=== PATIENT | female | born 1945 | race Caucasian/White ===

== ENCOUNTER 2019-04-30 15:02 | Emergency (ER) | payer MEDICARE, OTHER ==
[~2019-04-30] VITALS: Ht 170.2 cm; Wt 79.4 kg
[2019-04-30] MEDS ORDERED: LIPITOR (15:08)
[2019-04-30] MEDS ORDERED: LOSARTAN (15:08)
[2019-04-30] MEDS ORDERED: ASPI81TA31 PO (15:08)
--- NOTE | 2019-04-30 15:11 | NUR ---
Patient ambulated with stable gait. A/Ox4. Speech is clear, speaks in complete sentences. Patient came for right index finger avulsion that happened @ 1030 this AM while she was cutting onions. Patient stated she went out and ran errands and when she came home she removed the dressing she applied and it would not stop bleeding. Addendum: 04/30/19 at 1539 by MIN Patient ambulated with stable gait. A/Ox4. Speech is clear, speaks in complete sentences. Patient came for right pinky finger avulsion that happened @ 1030 this AM while she was cutting onions with a mandolin. Patient stated she went out and ran errands and when she came home she removed the dressing she applied and it would not stop bleeding.
--- NOTE | 2019-04-30 15:52 | NUR ---
Patient discharged to home in stable conditon. Written and verbal after care instructions given. Patient verbalizes understanding of instructions. Patient ambulated with stable gait.
--- NOTE | 2019-04-30 15:55 | NUR ---
Patient discharged to home in stable conditon. Written and verbal after care instructions given. Patient verbalizes understanding of instructions. Patient ambulated with stable gait.
[2019-04-30 15:56] VITALS: BP 128/91
== END 2019-04-30 15:56 | disposition home or self-care (01) ==
LOC: ER 15:02
DX: S61.216A Laceration without foreign body of right little finger without damage to nail, initial encounter (principal); E78.5 Hyperlipidemia, unspecified; Z79.82 Long term (current) use of aspirin; Z79.899 Other long term (current) drug therapy; W26.0XXA Contact with knife, initial encounter; Y93.89 Activity, other specified; Y92.89 Other specified places as the place of occurrence of the external cause; Y99.8 Other external cause status
CPT/HCPCS: A4663